=== PATIENT | male | born 1990 | race Caucasian/White ===

== ENCOUNTER 2022-11-16 23:09 | Emergency (ER) | payer OTHER ==
[2022-11-16 23:58] LABS: RAPID STREP SCREEN Negative (Negative)
[2022-11-17 00:36] LABS: CORONAVIRUS 229E-RESP PCR NOT DETECTED; CORONAVIRUS HKU1-RESP PCR NOT DETECTED; CORONAVIRUS NL63-RESP PCR NOT DETECTED; CORONAVIRUS OC43-RESP PCR NOT DETECTED; HUMAN METAPNEUMOVIRUS NOT DETECTED; INFLUENZA A- RESP PCR PANEL NOT DETECTED; INFLUENZA B - RESP PCR PANEL NOT DETECTED; PARAINFLUENZA VIRUS 1 NOT DETECTED; PARAINFLUENZA VIRUS 2 NOT DETECTED; PARAINFLUENZA VIRUS 3 NOT DETECTED; PARAINFLUENZA VIRUS 4 NOT DETECTED; RHINOVIRUS/ENTEROVIRUS NOT DETECTED; RSV- RESP PCR PANEL NOT DETECTED; SARS-CoV-2 -RESP PCR PANEL NOT DETECTED
[2022-11-17 00:37] LABS: B. PARAPERTUSSIS- RESP PCR PAN NOT DETECTED; B. PERTUSSIS- RESP PCR PANEL NOT DETECTED; C. PNEUMONIAE- RESP PCR PANEL NOT DETECTED; M. PNEUMONIAE- RESP PCR PANEL NOT DETECTED
--- NOTE | 2022-11-17 02:26 | ED Physician Documentation ---
History of Present Illness - Stated complaint Stated Complaint: CHEST PX,THROAT SWOLLEN - Chief complaint Chief Complaint: Heent - History obtained from History obtained from: Patient - Additonal information Additional information: HPI from patient. Patient c/o 2 days of sore throat, progressing in intensity and becoming associated with odynophagia. He feels the right side of his throat is definitiv [place] more painful than his left. Seen by PMD earlier today, was told likely viral and that no specific rx could be provided that might help alleviate symptoms nor speed resolution. He comes to ED due to worsening pain that has not made it difficult to swallow even sips of liquids. Review of Systems Constitutional: denies: Fever Ears: reports: Reviewed and negative Nose: reports: Reviewed and negative Throat: reports: Sore throat Respiratory: denies: Dyspnea, Cough PD PAST MEDICAL HISTORY - Past Medical History Past Medical History: No - Present Medications Home Medications: Ambulatory Orders Medication Instructions Recorded Confirmed Amox/Clav 875/125 [Augmentin 1 tablet PO Q12H 7 Days #14 tablet 11/17/22 875/125 Tab] - Allergies Allergies/Adverse Reactions: Allergies Allergy/AdvReac Type Severity Reaction Status Date / Time No Known Drug Allergies Allergy Verified 11/16/22 23:14 PD ED PE NORMAL - Vitals Vital signs reviewed: Yes - General General: Alert and oriented X 3, No acute distress, Well developed/nourished - HEENT HEENT: Moist mucous membranes, Dentition benign - Neck Neck: Supple, no meningeal sign - Respiratory Respiratory: No respiratory distress, Clear bilaterally PD ED PE EXPANDED - HEENT HEENT: Swollen tonsils (hypertrophic tosils bilaterally, suspect this might not be far from baseline (patient says he snores, and the left tonsil does not appear inflamed). both tonsils have a few tonsillar crypts, and the right tonsil is approximately 25-50% larger than the left, with crypts but also erythema and edema). No: Tonsillar exudate Results - Vitals Vitals: Oxygen O2 Source Room air - Labs Labs: Microbiology 11/16/22 23:37 Group A Strep Throat Culture - Final Throat MIXED OROPHARYNGEAL SOFIE PRESENT. NO BETA STREP PRESENT IN CULTURE. Laboratory Tests 11/16/22 11/16/22 23:37 23:37 Nasal Adenovirus (PCR) NOT DETECTED Nasal B. parapertussis DNA (PCR) NOT DETECTED Nasal Coronavir 229E PCR NOT DETECTED Nasal Coronavir HKU1 PCR NOT DETECTED Nasal Coronavir NL63 PCR NOT DETECTED Nasal Coronavir OC43 PCR NOT DETECTED Nasal Enterovir/Rhinovir PCR NOT DETECTED Nasal Influenza B PCR NOT DETECTED Nasal Influenza A PCR NOT DETECTED Nasal Parainfluen 1 PCR NOT DETECTED Nasal Parainfluen 2 PCR NOT DETECTED Nasal Parainfluen 3 PCR NOT DETECTED Nasal Parainfluen 4 PCR NOT DETECTED Nasal RSV (PCR) NOT DETECTED Nasal B.pertussis DNA PCR NOT DETECTED Nasal C.pneumoniae (PCR) NOT DETECTED Michael Human Metapneumo PCR NOT DETECTED Nasal M.pneumoniae (PCR) NOT DETECTED Nasal SARS-CoV-2 (PCR) NOT DETECTED Group A Strep Rapid Negative PD Medical Decision Making - ED course Complexity details: considered differential, d/w patient ED course: H+P c/o pharyngitis. Rapid strep negative and respiratory PCR panel is negative for viruses tested on this panel. However, there is a distinct discrepancy in tonsil size, R>L. Patient says his pain is predominantly on right side of posterior oropharynx. My concern is possible early abscess, and thus given 10mg PO decadron, 875mg PO augmentin and rx for one-week course of augmentin is electronically submitted to his pharmacy of choice. Return precautions reviewed, recommended follow up with PMD within 2-3 days. Departure - Departure Disposition: 01 Home, Self Care Clinical Impression: Pharyngitis Qualifiers: Pharyngitis/tonsillitis etiology: unspecified etiology Qualified Code(s): J02.9 - Acute pharyngitis, unspecified Condition: Good Instructions: ED Pharyngitis Viral Report Pending Follow-Up: BRIANA GEORGE DO [Primary Care Provider] - Within 1 week Prescriptions: Amox/Clav 875/125 [Augmentin 875/125 Tab] 1 tablet PO Q12H 7 Days #14 tablet Comments: Your strep test was negative. The nasal swab tested for several different viruses including COVID, influenza, and you were negative for the viruses on this panel. On the exam, your tonsils appear very large, but most concerning is at the right side where you have most of the pain is noticeably larger than the left side. This raises concern for a bacterial infection and therefore you were given a dose of an antibiotic (Augmentin) in the emergency department. You are also given a one-time dose of Decadron, which is a steroid that can help reduce the inflammation associated with pharyngitis. A prescription for a 1 week course of the antibiotic has been electronically submitted to the [facility] pharmacy in [place]. As we discussed, both of your tonsils have tonsillar crypts/pits. Sometimes food can get stuck in the tonsillar crypts which can lead to inflammation and eventually an infection. Follow-up with your primary care provider within 1 week. Discharge Date/Time: 11/17/22 03:02
[2022-11-17] MEDS ORDERED: DEXAMETHASONE 10 MG/ML VIAL PO STA (02:48)
[2022-11-17] MEDS ORDERED: CHERRY SYRUP 10 ML UDC PO ONE (02:48)
[2022-11-17] MEDS ORDERED: AMOX/CLAV 875 MG/125 MG TABLET PO STA (02:48)
[2022-11-17 03:02] VITALS: BP 122/85
== END 2022-11-17 03:02 | disposition home or self-care (01) ==
LOC: ED 23:09
DX: J02.9 Acute pharyngitis, unspecified (principal); Z20.822 Contact with and (suspected) exposure to COVID-19
CPT/HCPCS: 87070; 87430; 87633; 93005; 99282; 99283; A9270

== ENCOUNTER 2023-01-12 12:15 | Outpatient (CLI) | payer OTHER ==
--- NOTE | 2023-01-13 10:40 | XRAY Report ---
PROCEDURE: Lumbar Spine 2 View INDICATIONS: LOW BACK PAIN. TECHNIQUE: 3 views of the lumbar spine were acquired. COMPARISON: None. FINDINGS: Bones: 5 [id number] vertebrae are present. There is normal bony alignment. No vertebral body compression fractures. No suspicious bony lesions. Minimal degenerative spurring. Soft tissues: Overlying bowel gas pattern is normal. No suspicious soft tissue calcifications. IMPRESSION: No acute osseous abnormality. If clinical symptoms persist, consider MRI for follow-up. Reviewed by: Rebekah Hunter MD on 01/13/2023 10:39 AM PDT Approved by: Rebekah Hunter MD on 01/13/2023 10:39 AM PDT Station ID: [id number]
== END 2023-01-12 12:30 | disposition home or self-care (01) ==
LOC: DI.N 12:15
PROVIDERS: ATTEND Family Medicine
DX: M54.50 Low back pain, unspecified (principal); G89.29 Other chronic pain

== ENCOUNTER 2023-01-31 09:55 | Outpatient (CLI) | payer OTHER ==
--- NOTE | 2023-01-31 12:02 | MRI Report ---
PROCEDURE: LUMBAR SPINE WO INDICATIONS: LOW BACK PAIN TECHNIQUE: Noncontrast sagittal T1 spin echo and T2 fast echo, sagittal STIR, axial T1 and T2 fast spin echo thr ough the lumbar spine. In cases with scoliosis, additional coronal T2 fast spin echo may be performe d. COMPARISON: Lumbar spine radiograph dated 01/12/2023. FINDINGS: Image quality: Excellent. Alignment and Curvature: There is straightening of normal lumbar lordosis. Bone Marrow: Marrow is of normal overall signal. No acute vertebral body compression fractures. Spinal Cord: Conus medullaris terminates at the L1 level. Visualized cord demonstrates normal signa l and size. Paraspinous Soft Tissues: No paravertebral masses. T12-L1: Normal in appearance. L1-L2: Normal in appearance. L2-L3: Bilateral facet arthrosis is seen. No significant disc bulge, canal stenosis or neural fora madalyn narrowing. L3-L4: Mild broad-based disc bulge is noted. Bilateral facet arthrosis is also seen. There is mild central canal stenosis and bilateral neural foraminal narrowing. L4-L5: Mild diffuse disc bulge and bilateral facet arthrosis is seen with mild central canal stenos is and mild to moderate bilateral neural foraminal narrowing. L5-S1: Broad-based disc bulge and bilateral facet arthrosis is seen with mild central canal stenosi s, moderate left-sided neural foraminal narrowing and mild right-sided neural foraminal narrowing. IMPRESSION: 1. Mild degenerative disc bulge and bilateral facet arthrosis in mid to lower lumbar spine causing va rious degrees of central canal stenosis and bilateral neural foraminal narrowing as described above. 2. No marrow edema. No acute compression fracture or spondylolisthesis. Reviewed by: Jeovanny Vargas MD on 01/31/2023 12:01 PM PDT Approved by: Jeovanny Vargas MD on 01/31/2023 12:01 PM PDT Station ID: [id number]
== END 2023-01-31 09:56 | disposition home or self-care (01) ==
LOC: DI 09:55
DX: M51.36 Other intervertebral disc degeneration, lumbar region (principal); M48.061 Spinal stenosis, lumbar region without neurogenic claudication; M47.816 Spondylosis without myelopathy or radiculopathy, lumbar region; M51.37 Other intervertebral disc degeneration, lumbosacral region; M48.07 Spinal stenosis, lumbosacral region; M47.817 Spondylosis without myelopathy or radiculopathy, lumbosacral region

== ENCOUNTER 2023-11-22 08:20 | Outpatient (CLI) | payer OTHER ==
--- NOTE | 2023-11-22 09:48 | Ultrasound Report ---
PROCEDURE: Abdomen Complete INDICATIONS: ABD PAIN TECHNIQUE: Real-time scanning was performed of the abdominal and retroperitoneal organs, with image documentatio n. COMPARISON: MR 01/31/2023. FINDINGS: Liver: Increased liver echogenicity. Loss of portal wall echogenicity in the right hepatic lobe, con sistent with moderate hepatic steatosis. Gallbladder: Unremarkable. Biliary ducts: Intrahepatic bile ducts are non-dilated. Extrahepatic bile duct caliber measures 3.4 mm. Normal is 6-7 mm or less in diameter, or 10 mm or less post-cholecystectomy. Pancreas: Visualized portions of the pancreas are sonographically normal. Spleen: Spleen is normal in size and homogeneous in echotexture. Kidneys: Kidneys are normal in size and echotexture. Right kidney measures 10.8 cm long; left kidne y measures 12.3 cm long. No hydronephrosis or nephrolithiasis. No solid masses. No complex renal cy stic lesions which require follow-up. Aorta: Visualized aorta is normal in caliber at less than 3 cm. Iliacs: Proximal common iliac arteries are normal in caliber at less than 2.5 cm. IVC: Intrahepatic inferior vena cava is patent. Miscellaneous: No free abdominal fluid. IMPRESSION: At least moderate hepatic steatosis. Correlate with LFTs, as elevated LFTs may indicate steatohepatit is. Reviewed by: Sonido Sultana MD on 11/22/2023 9:46 AM PDT Approved by: Sonido Sultana MD on 11/22/2023 9:46 AM PDT Station ID: [id number]
== END 2023-11-22 08:21 | disposition home or self-care (01) ==
LOC: DI 08:20
DX: K76.0 Fatty (change of) liver, not elsewhere classified (principal); R10.9 Unspecified abdominal pain